=== PATIENT | female | born 1950 | race Caucasian/White ===

== ENCOUNTER → 2018-09-29 | Outpatient (CLI) | payer MEDICARE ==
--- NOTE | 2018-09-29 15:14 | CT ---
EXAMINATION TYPE: CT ankle RT wo con DATE OF EXAM: 09/29/2018 COMPARISON: None HISTORY: rt ankle fracture CT DLP: 263.0 mGycm Automated exposure control for dose reduction was used. TECHNIQUE: Contiguous axial CT slices were obtained of the right ankle without contrast. 3-D reformat s of the osseous structures were obtained for review at a separate workstation. FINDINGS: Lateral fixation plate and cortical screws traverse the healed fibular fracture. There are 7 cortical screws and the lateral fixation plate appropriately abuts the lateral cortical surface. No hardware fracture. Surgical fixation of medial malleolus and lateral malleolus fractures are also seen with the primary fracture line is slightly visualized. There is diffuse osseous demineralization, somewhat limiting ev aluation. Patchy areas of sclerosis are favored to relate to remaining normal trabeculated bone with lucent areas representing osseous demineralization. Overlying casting material is seen. There is exte nsive right lower extremity muscular atrophy and overlying generalized moderate subcutaneous edema li miting evaluation. Healed fracture deformity of the base of the fifth metatarsal is seen. Evaluation for further fractures is limited given the diffuse osseous demineralization. Patchy bone marrow seen throughout the talus although joint space remains aligned. Healed posterior malleolar fracture is inc identally seen. IMPRESSION: SEVERE RIGHT LOWER EXTREMITY MUSCULAR ATROPHY, EXTENSIVE OSSEOUS DEMINERALIZATION (LIMITING THE EVALU ATION) AND SURGICALLY FIXATED FRACTURE DEFORMITIES OF THE MEDIAL AND LATERAL MALLEOLUS DESCRIBED A ARTUR. HEALED POSTERIOR MALLEOLAR FRACTURE AND BASE OF THE FIFTH METATARSAL FRACTURE ARE ALSO NOTED.
== END | disposition home or self-care (01) ==
LOC: RADCTMAIN 14:15
PROVIDERS: ATTEND Podiatrist Foot & Ankle Surgery
DX: M62.561 Muscle wasting and atrophy, not elsewhere classified, right lower leg (principal); Z87.81 Personal history of (healed) traumatic fracture; Z98.890 Other specified postprocedural states

== ENCOUNTER → 2018-12-14 | Outpatient (CLI) | payer MEDICARE ==
--- NOTE | 2018-12-14 16:21 | US ---
EXAMINATION TYPE: US venous doppler duplex LE DATE OF EXAM: 12/14/2018 12:37 PM COMPARISON: NONE CLINICAL HISTORY: 68-year-old female M81.0 Known osteoporosis I73.9 Peripheral.... No pain. No blood thinners. No hx of blood clots. Broke right ankle in July 2018- patient states she has been sit ting a lot SIDE PERFORMED: Bilateral TECHNIQUE: The lower extremity deep venous system is examined utilizing real time linear array sonog aneudy with graded compression, doppler sonography and color-flow sonography. FINDINGS: VESSELS IMAGED: External Iliac Vein (EIV) Common Femoral Vein Deep Femoral Vein Greater Saphenous Vein * Femoral Vein Popliteal Vein Small Saphenous Vein * Proximal Calf Veins (* superficial vessels) Right Leg: Negative for DVT Left Leg: Negative for DVT IMPRESSION: No evidence for DVT within the bilateral lower extremities imaged from the groin to the upper calves.
--- NOTE | 2018-12-14 18:37 | BD ---
EXAMINATION TYPE: Axial Bone Density DATE OF EXAM: 12/14/2018 COMPARISON: NONE CLINICAL HISTORY: 68-year-old female known osteoporosis Height: 61.1 IN Weight: 138 LBS FRAX RISK QUESTIONS: History of Fracture in Adulthood: YES RT FOOT JUL 2018 RISK FACTORS HISTORY OF: Hip Fracture (Left): YES When: AGE 39 Active: LIMITED Diet low in dairy products/other sources of calcium: YES Postmenopausal woman: AGE 44 MEDICATIONS: Thyroid Medications: YES Which medication: Synthroid How Lon+ YEARS Additional Medications: SYNTHROID, VIT D, VIT B12, BLOOD PRESSURE, AMLODIPINE, EFFEXOR, EXAM MEASUREMENTS: Bone mineral densitometry was performed using the [employer]. Bone mineral density as measured about the Lumbar spine is: ----- L1-L4(G/cm2): 1.036 T Score Values are as follows: ----- L2: -2.1 ----- L3: -0.6 ----- L4: -1.3 ----- L1-L4: -1.2 Bone mineral density BASELINE Bone mineral density about the R hip (g/cm2): 0.633 T Score values are as follows: -----R Neck: -2.9 -----R Total: -2.9 Bone mineral density BASELINE IMPRESSION: Osteoporosis (T Score less than -2.5). There is increased fracture risk and therapy is usually indicated based on age. Re-Screen 1-2 years. NOTE: T-SCORE=SD OF THE YOUNG ADULT MEAN.
--- NOTE | 2018-12-16 09:39 | MM ---
Reason for exam: screening (asymptomatic). Last mammogram was performed 1 year and 5 months ago. History: Patient is postmenopausal. Family history of breast cancer in cousin and breast cancer in sister at age 69. Took estrogen for 5 months. Took progesterone for 5 months. Physical Findings: A clinical breast exam by your physician is recommended on an annual basis and results should be correlated with mammographic findings. MG 3D Screening Mammo W/Cad Bilateral CC and MLO view(s) were taken. Prior study comparison: July 20, 2017, mammogram, performed at [facility] [place]. June 19, 2016, mammogram, performed at [facility] [place]. The breast tissue is heterogeneously dense. This may lower the sensitivity of mammography. No significant changes when compared with prior studies. ASSESSMENT: Benign, BI-RAD 2 RECOMMENDATION: Routine screening mammogram of both breasts in 1 year.
== END | disposition home or self-care (01) ==
LOC: RADUSWWP 11:46
PROVIDERS: ATTEND Internal Medicine
DX: Z12.31 Encounter for screening mammogram for malignant neoplasm of breast (principal); M81.0 Age-related osteoporosis without current pathological fracture; R60.0 Localized edema
CPT/HCPCS: 77063; 77067; 77080; 93970

== ENCOUNTER → 2020-08-22 | Outpatient (CLI) | payer MEDICARE ==
--- NOTE | 2020-08-23 10:47 | MM ---
Reason for exam: screening (asymptomatic). Last mammogram was performed 1 year and 8 months ago. History: Patient is postmenopausal. Family history of breast cancer in cousin and breast cancer in sister at age 69. Took estrogen for 5 months. Took progesterone for 5 months. Physical Findings: A clinical breast exam by your physician is recommended on an annual basis and results should be correlated with mammographic findings. MG 3D Screening Mammo W/Cad Bilateral CC and MLO view(s) were taken. XCCL view(s) were taken of the left breast. Prior study comparison: December 14, 2018, bilateral MG 3d screening mammo w/cad. [place], [place] [facility] [place] The breast tissue is heterogeneously dense. This may lower the sensitivity of mammography. There are benign appearing round calcifications in the right breast. There is no discrete abnormality. Vessel right breast. ASSESSMENT: Benign, BI-RAD 2 RECOMMENDATION: Routine screening mammogram of both breasts in 1 year.
== END | disposition home or self-care (01) ==
LOC: RADMAMWWP 13:26
PROVIDERS: ATTEND Internal Medicine
DX: Z12.31 Encounter for screening mammogram for malignant neoplasm of breast (principal)
CPT/HCPCS: 77063; 77067

== ENCOUNTER 2020-10-23 18:15 | Inpatient (IN) | payer MEDICARE ==
[2020-10-23] MEDS ORDERED: ASPIRIN 81 MG PO STA (18:45)
[2020-10-23] MEDS ORDERED: NITROGLYCERIN SL TABS 0.4 MG TAB SUBLINGUAL STA ×3 (18:45)
--- NOTE | 2020-10-23 18:47 | ED ---
General Adult HPI - General Chief complaint: Chest Pain Stated complaint: chest pain Time Seen by Provider: 10/23/20 18:27 Source: patient, RN notes reviewed Mode of arrival: ambulatory Limitations: no limitations - History of Present Illness Initial comments: Patient is a pleasant 70-year-old female presenting to the emergency Department with complaints of chest discomfort. Onset of symptoms was 2 or 3 days ago. Discomfort is left chest. Discomfort is difficult to describe. Discomfort is mild at this time. Discomfort does increase with deep breaths. No dyspnea. No cough. No history of similar symptoms previously. No fevers. No leg pain or leg swelling. - Related Data Home Medications Medication Instructions Recorded Confirmed Benazepril HCl 40 mg PO HS 10/23/20 10/23/20 FLUoxetine HCL [PROzac] 20 mg PO DAILY 10/23/20 10/23/20 Levothyroxine Sodium [Synthroid] 150 mcg PO DAILY 10/23/20 10/23/20 Omeprazole 20 mg PO DAILY PRN 10/23/20 10/23/20 amLODIPine [Norvasc] 10 mg PO HS 10/23/20 10/23/20 Allergies Allergy/AdvReac Type Severity Reaction Status Date / Time gatifloxacin [From Tequin] Allergy Unknown Verified 10/23/20 20:43 Review of Systems ROS Statement: Those systems with pertinent positive or pertinent negative responses have been documented in the HPI. ROS Other: All systems not noted in ROS Statement are negative. Constitutional: Denies: fever Eyes: Denies: eye pain ENT: Denies: ear pain Respiratory: Denies: cough, dyspnea Cardiovascular: Reports: as per HPI, chest pain Endocrine: Denies: fatigue Gastrointestinal: Denies: abdominal pain Genitourinary: Denies: dysuria Musculoskeletal: Denies: back pain Skin: Denies: rash Neurological: Denies: weakness Past Medical History Past Medical History: Hypertension History of Any Multi-Drug Resistant Organisms: None Reported Past Surgical History: No Surgical Hx Reported Past Psychological History: No Psychological Hx Reported Smoking Status: Never smoker Past Alcohol Use History: Daily Past Drug Use History: None Reported General Exam Limitations: no limitations General appearance: alert, in no apparent distress Head exam: Present: normocephalic Eye exam: Present: normal appearance Neck exam: Present: normal inspection Respiratory exam: Present: normal lung sounds bilaterally. Absent: chest wall tenderness Cardiovascular Exam: Present: regular rate, normal rhythm Expanded Peripheral pulses: 2+: Radial (R), Radial (L), Dorsalis Pedis (R), Dorsalis Pedis (L) GI/Abdominal exam: Present: soft. Absent: tenderness Extremities exam: Present: normal inspection, other (Bilateral leg braces) Neurological exam: Present: alert Psychiatric exam: Present: normal affect, normal mood Skin exam: Present: normal color Course Vital Signs 10/23/20 10/23/20 18:22 20:40 Temperature 98.3 F Pulse Rate 100 84 Respiratory 18 16 Rate Blood Pressure 165/71 159/77 O2 Sat by Pulse 92 L 97 Oximetry EKG Findings - EKG Comments: EKG Findings:: Sinus rhythm at 96. AR 144. QRS 92. QT 356. QTc 449. Normal axis. Normal QRS. No acute ST change. PVC present. Medical Decision Making - Medical Decision Making Patient reevaluated and resting comfortably in bed. Patient does feel somewhat better following intervention. Patient and family updated on results and plan. Case was discussed in detail with Dr. taylor, who will admit covering for hospital call. - Lab Data Result diagrams: 10/23/20 18:57 10/23/20 18:57 Lab Results 10/23/20 10/23/20 10/23/20 Range/Units 18:57 18:57 18:57 WBC 7.7 (3.8-10.6) k/uL RBC 5.22 (3.80-5.40) m/uL Hgb 15.7 (11.4-16.0) gm/dL Hct 48.7 H (34.0-46.0) % MCV 93.2 (80.0-100.0) fL MCH 30.1 (25.0-35.0) pg MCHC 32.3 (31.0-37.0) g/dL RDW 13.4 (11.5-15.5) % Plt Count 268 (150-450) k/uL MPV 6.4 Neutrophils % 68 % Lymphocytes % 22 % Monocytes % 4 % Eosinophils % 4 % Basophils % 0 % Neutrophils # 5.2 (1.3-7.7) k/uL Lymphocytes # 1.7 (1.0-4.8) k/uL Monocytes # 0.3 (0-1.0) k/uL Eosinophils # 0.3 (0-0.7) k/uL Basophils # 0.0 (0-0.2) k/uL PT 9.8 (9.0-12.0) sec INR 0.9 (<1.2) APTT 22.9 (22.0-30.0) sec D-Dimer 1.03 H (<0.60) mg/L FEU Sodium 139 (137-145) mmol/L Potassium 4.5 (3.5-5.1) mmol/L Chloride 104 (98-107) mmol/L Carbon Dioxide 25 (22-30) mmol/L Anion Gap 10 mmol/L BUN 16 (7-17) mg/dL Creatinine 0.47 L (0.52-1.04) mg/dL Est GFR (CKD-EPI)AfAm >90 (>60 ml/min/1.73 sqM) Est GFR (CKD-EPI)NonAf >90 (>60 ml/min/1.73 sqM) Glucose 107 H (74-99) mg/dL Calcium 10.1 (8.4-10.2) mg/dL Magnesium 1.9 (1.6-2.3) mg/dL Total Bilirubin 0.9 (0.2-1.3) mg/dL AST 26 (14-36) U/L ALT 18 (4-34) U/L Alkaline Phosphatase 69 (38-126) U/L Creatine Kinase 162 H (30-135) U/L Troponin I (0.000-0.034) ng/mL Total Protein 8.4 H (6.3-8.2) g/dL Albumin 4.9 (3.5-5.0) g/dL 10/23/20 Range/Units 18:57 WBC (3.8-10.6) k/uL RBC (3.80-5.40) m/uL Hgb (11.4-16.0) gm/dL Hct (34.0-46.0) % MCV (80.0-100.0) fL MCH (25.0-35.0) pg MCHC (31.0-37.0) g/dL RDW (11.5-15.5) % Plt Count (150-450) k/uL MPV Neutrophils % % Lymphocytes % % Monocytes % % Eosinophils % % Basophils % % Neutrophils # (1.3-7.7) k/uL Lymphocytes # (1.0-4.8) k/uL Monocytes # (0-1.0) k/uL Eosinophils # (0-0.7) k/uL Basophils # (0-0.2) k/uL PT (9.0-12.0) sec INR (<1.2) APTT (22.0-30.0) sec D-Dimer (<0.60) mg/L FEU Sodium (137-145) mmol/L Potassium (3.5-5.1) mmol/L Chloride (98-107) mmol/L Carbon Dioxide (22-30) mmol/L Anion Gap mmol/L BUN (7-17) mg/dL Creatinine (0.52-1.04) mg/dL Est GFR (CKD-EPI)AfAm (>60 ml/min/1.73 sqM) Est GFR (CKD-EPI)NonAf (>60 ml/min/1.73 sqM) Glucose (74-99) mg/dL Calcium (8.4-10.2) mg/dL Magnesium (1.6-2.3) mg/dL Total Bilirubin (0.2-1.3) mg/dL AST (14-36) U/L ALT (4-34) U/L Alkaline Phosphatase (38-126) U/L Creatine Kinase (30-135) U/L Troponin I <0.012 (0.000-0.034) ng/mL Total Protein (6.3-8.2) g/dL Albumin (3.5-5.0) g/dL - Radiology Data Radiology results: report reviewed (CT angios chest shows no pulmonary embolism. Limitations of study. Atherosclerotic disease.), image reviewed (Chest x-ray shows prominence of the superior mediastinum.) Disposition Clinical Impression: Chest pain Disposition: ADMITTED IP TO THIS HOSP Is patient prescribed a controlled substance at d/c from ED?: No Referrals: Marco Antonio Madden MD [Primary Care Provider] - 1-2 days Decision Time: 21:07
[2020-10-23 19:13] LABS: Basophils % (A) 0 %; Eosinophils # (A) 0.3 k/uL (0-0.7); Eosinophils % (A) 4 %; HCT 48.7 % (34.0-46.0); HGB 15.7 gm/dL (11.4-16.0); Lymphocytes # (A) 1.7 k/uL (1.0-4.8); Lymphocytes % (A) 22 %; MCH 30.1 pg (25.0-35.0); MCHC 32.3 g/dL (31.0-37.0); MCV 93.2 fL (80.0-100.0); Mean Platelet Volume 6.4; Monocytes # (A) 0.3 k/uL (0-1.0); Monocytes % (A) 4 %; Neutrophils # (A) 5.2 k/uL (1.3-7.7); Neutrophils % (A) 68 %; Platelet Count 268 k/uL (150-450); RBC 5.22 m/uL (3.80-5.40); RDW 13.4 % (11.5-15.5); WBC 7.7 k/uL (3.8-10.6)
--- NOTE | 2020-10-23 19:20 | XR ---
EXAMINATION TYPE: XR chest 2V DATE OF EXAM: 10/23/2020 COMPARISON: NONE HISTORY: Chest pain. TECHNIQUE: Frontal and lateral views of the chest are obtained. FINDINGS: There is mild left basilar hazy opacity. No significant pleural effusion, or pneumothorax seen. There is prominence of the superior mediastinum. The cardiac silhouette size is within normal limits. The osseous structures are intact. IMPRESSION: Prominence of the superior mediastinal, may relate to thyroid pathology. However other etiologies not excluded. Recommend clinical correlation and further evaluation with CT as indicated. Mild left basilar opacity, probably atelectasis.
[2020-10-23 19:31] LABS: Chloride 104 mmol/L (98-107); INR 0.9 (<1.2); Partial Thromboplastin Time 22.9 sec (22.0-30.0); Prothrombin Time 9.8 sec (9.0-12.0)
[2020-10-23 19:33] LABS: ALT 18 U/L (4-34); AST 26 U/L (14-36); African American GFR (CKD) >90 (>60 ml/min/1.73 sqM); Albumin 4.9 g/dL (3.5-5.0); Alkaline Phosphatase 69 U/L (38-126); Anion Gap 10 mmol/L; Blood Urea Nitrogen 16 mg/dL (7-17); Calcium 10.1 mg/dL (8.4-10.2); Carbon Dioxide 25 mmol/L (22-30); Creatine Kinase 162 U/L (30-135); Glucose 107 mg/dL (74-99); Magnesium 1.9 mg/dL (1.6-2.3); Non-African American GFR(CKD) >90 (>60 ml/min/1.73 sqM); Potassium 4.5 mmol/L (3.5-5.1); Sodium 139 mmol/L (137-145); Total Bilirubin 0.9 mg/dL (0.2-1.3); Total Protein 8.4 g/dL (6.3-8.2)
[2020-10-23 19:38] LABS: D-Dimer 1.03 mg/L FEU (<0.60)
--- NOTE | 2020-10-23 20:53 | CT ---
EXAMINATION TYPE: CT angio chest DATE OF EXAM: 10/23/2020 8:31 PM COMPARISON: Same-day radiograph. HISTORY: Dyspnea. Elevated d-dimer CT DLP: 243.3 mGycm Automated exposure control for dose reduction was used. CONTRAST: CTA scan of the thorax is performed with IV Contrast, patient injected with 70 mL of Isovue 370, pulm onary embolism protocol. MIP images are created and reviewed. FINDINGS: LUNGS: The lungs are grossly clear, there is no concerning parenchymal mass or nodule identified. T here is no pleural effusion or pneumothorax seen. The tracheobronchial tree is patent. MEDIASTINUM: There is suboptimal enhancement of the pulmonary artery and its branches. There is no CT evidence for pulmonary embolism of the main/central branches. There are no greater than 1 cm hilar or mediastinal lymph nodes. Azygos vein seen. Moderate thoracic aorta atherosclerotic disease with de scending aorta intramural thrombus noted. No pericardial effusion is seen. OTHER: No additional significant abnormality is seen. IMPRESSION: NO ACUTE PE WITHIN THE LIMITATIONS OF THE STUDY NO ACUTE CARDIOPULMONARY ABNORMALITY. RADIOGRAPHIC ABNORMALITY, CORRESPONDS TO THE AZYGOS VEIN AND ADJACENT TORTUOUS VASCULATURE. ATHEROSCLEROTIC DISEASE WITH DESCENDING AORTA INTRAMURAL THROMBUS.
[2020-10-23] MEDS ORDERED: NITROGLYCERIN SL TABS 0.4 MG TAB SUBLINGUAL PRN (21:07)
[2020-10-23] MEDS: lisinopriL 20 MG TAB PO SCH (23:46)
[2020-10-23] MEDS: amLODIPine 10 MG TAB PO SCH (23:47)
[2020-10-24 02:33] LABS: Cholesterol 254 mg/dL (<200); HDL Cholesterol 75 mg/dL (40-60); LDL Cholesterol,Calculated 152 mg/dL (0-99); Triglycerides 137 mg/dL (<150)
[2020-10-24] MEDS: NITROGLYCERIN OINT 1 INCH/GM PACKET TOPICAL SCH ×4 (04:16→21:14)
[2020-10-24] MEDS: LEVOTHYROXINE 100 MCG TAB PO SCH (06:53)
[2020-10-24] MEDS: ASPIRIN 325 MG TAB PO SCH (07:54)
[2020-10-24] MEDS: FLUoxetine HCL 20 MG CAP PO SCH (07:54)
--- NOTE | 2020-10-24 08:54 | P.CRDCN ---
History of Present Illness Consult date: 10/24/20 Chief complaint: Chest pain History of present illness: This is a very pleasant 70-year-old female patient with a past medical history significant for hypertension with no established history of coronary artery disease presented to the emergency room complaining of chest discomfort. The patient describes chest discomfort with typical and atypical features. The symptoms started about a week ago. Initially she was experiencing what it seems to be positional chest discomfort mainly when she lay on her left side. The discomfort as a sharp and only in the chest without any radiation. No associated symptoms. Yesterday she was doing some shopping and she started experiencing discomfort when she was walking when she arrived her current sat in her car the discomfort resolved completely. Because of that she decided to come to the emergency department the cardiac enzymes were checked and came in to be unremarkable. The EKG showed sinus rhythm without any ischemic ST or T-wave abnormalities and with PACs only. She underwent a d-dimer and that came in to be abnormal and subsequently a CT of the chest was performed and BE was ruled out but the CT reported "thrombus in the descending thoracic aorta". We are going to review the CT with the radiologist later on today. No aneurysm or dissection reported on the computed tomography scan. The patient does have a family history of aortic aneurysm and according to her her dad had it. She stated that she underwent a stress test in July 2020 by her primary care physician and we are in process of getting a copy of the test. Past Medical History Past Medical History: Hypertension History of Any Multi-Drug Resistant Organisms: None Reported Past Surgical History: No Surgical Hx Reported Past Psychological History: No Psychological Hx Reported Smoking Status: Never smoker Past Alcohol Use History: Daily Past Drug Use History: None Reported Medications and Allergies Home Medications Medication Instructions Recorded Confirmed Type Benazepril HCl 40 mg PO HS 10/23/20 10/23/20 History FLUoxetine HCL [PROzac] 20 mg PO DAILY 10/23/20 10/23/20 History Levothyroxine Sodium [Synthroid] 150 mcg PO DAILY 10/23/20 10/23/20 History Omeprazole 20 mg PO DAILY PRN 10/23/20 10/23/20 History amLODIPine [Norvasc] 10 mg PO HS 10/23/20 10/23/20 History Allergies Allergy/AdvReac Type Severity Reaction Status Date / Time gatifloxacin [From Tequin] Allergy Unknown Verified 10/23/20 20:43 Physical Exam Vitals: Vital Signs Temp Pulse Pulse Resp BP Pulse Ox 10/24/20 07:46 70 10/24/20 07:39 98 F 72 18 131/68 96 10/24/20 05:37 98 F 71 18 140/74 95 10/23/20 22:00 94 16 136/91 97 10/23/20 20:40 84 16 159/77 97 10/23/20 18:22 98.3 F 100 18 165/71 92 L Intake and Output 10/23/20 10/24/20 10/24/20 22:59 06:59 14:59 Other: Weight 67.132 kg - Constitutional General appearance: no acute distress - Respiratory Respiratory: bilateral: CTA - Cardiovascular Rhythm: regular Heart sounds: normal: S1, S2 Results 10/23/20 18:57 10/23/20 18:57 Cardiac Enzymes 10/23/20 10/23/20 10/23/20 Range/Units 18:57 18:57 22:30 AST 26 (14-36) U/L Troponin I <0.012 <0.012 (0.000-0.034) ng/mL 10/24/20 Range/Units 00:26 AST (14-36) U/L Troponin I <0.012 (0.000-0.034) ng/mL Coagulation 10/23/20 Range/Units 18:57 PT 9.8 (9.0-12.0) sec APTT 22.9 (22.0-30.0) sec Lipids 10/24/20 Range/Units 00:26 Triglycerides 137 (<150) mg/dL Cholesterol 254 H (<200) mg/dL HDL Cholesterol 75 H (40-60) mg/dL CBC 10/23/20 Range/Units 18:57 WBC 7.7 (3.8-10.6) k/uL RBC 5.22 (3.80-5.40) m/uL Hgb 15.7 (11.4-16.0) gm/dL Hct 48.7 H (34.0-46.0) % Plt Count 268 (150-450) k/uL Comprehensive Metabolic Panel 10/23/20 Range/Units 18:57 Sodium 139 (137-145) mmol/L Potassium 4.5 (3.5-5.1) mmol/L Chloride 104 (98-107) mmol/L Carbon Dioxide 25 (22-30) mmol/L BUN 16 (7-17) mg/dL Creatinine 0.47 L (0.52-1.04) mg/dL Glucose 107 H (74-99) mg/dL Calcium 10.1 (8.4-10.2) mg/dL AST 26 (14-36) U/L ALT 18 (4-34) U/L Alkaline Phosphatase 69 (38-126) U/L Total Protein 8.4 H (6.3-8.2) g/dL Albumin 4.9 (3.5-5.0) g/dL Current Medications Generic Name Dose Route Start Last Admin Trade Name Freq PRN Reason Stop Dose Admin Amlodipine Besylate 10 mg 10/23/20 23:45 10/23/20 23:47 Amlodipine 10 Mg Tab PO 10 mg HS SHELBY Administration Aspirin 325 mg 10/24/20 09:00 10/24/20 07:54 Aspirin 325 Mg Tab PO 325 mg DAILY SHELBY Administration Fluoxetine HCl 20 mg 10/24/20 09:00 10/24/20 07:54 Fluoxetine Hcl 20 Mg Cap PO 20 mg DAILY SHELBY Administration Levothyroxine Sodium 150 mcg 10/24/20 06:30 10/24/20 06:53 Levothyroxine 100 Mcg Tab PO 150 mcg DAILY@0630 SHELBY Administration Lisinopril 40 mg 10/23/20 23:45 10/23/20 23:46 Lisinopril 20 Mg Tab PO 40 mg HS SHELBY Administration Nitroglycerin 0.4 mg 10/23/20 21:07 Nitroglycerin Sl Tabs 0.4 Mg Tab SUBLINGUAL Q5M PRN Chest Pain Nitroglycerin 0.5 inch 10/24/20 00:00 10/24/20 06:54 Nitroglycerin Oint 1 Inch/Gm Packet TOPICAL 0.5 inch Q6HR SHELBY Administration Intake and Output 10/23/20 10/24/20 10/24/20 22:59 06:59 14:59 Other: Weight 67.132 kg 10/23/20 18:57 10/23/20 18:57 Assessment and Plan Assessment: Assessment #1 chest discomfort with typical and atypical features #2 hypertension #3 possible thrombus in the descending thoracic aorta Plan #1 acute coronary event was ruled out #2 PE was ruled out #3 aortic syndrome to be ruled out. We'll review the computed tomography scan with the radiologist later on today #4 obtain a copy of the last stress test from July 2020 #4 obtain an echocardiogram was Doppler
--- NOTE | 2020-10-24 11:23 | P.HPIM ---
History of Present Illness This is a pleasant 70 years old female with past medical history of hypertension. Presents to emergency room because of chest pain. History of muscular dystrophy using leg braces on both sides Patient states she has been having chest pain for the last 4 days, it was on and off for the first 2 days however started getting worse over the last couple days. She states that her left side was hurting in her chest, pain is nonradiating. Pain was 89/10 in severity currently she is chest pain-free, she states that the patient is to keep away. The patient felt like sharp increase by deep breathing and lying on the left side and increased with movement and coughing. sHe had some dyspnea but now is everything has resolved. No coughing currently. She denies smoking currently, she is to but quit long time ago. She drinks wine 1-2 cups about 5 days a week, no illicit drugs She is hemodynamically stable. Labs including CBC, BMP, liver enzymes were unremarkable. D-dimer is slightly elevated at 1.03. Serial troponin are neg ative 3 with less than 0.012. CTA of the chest: No pulmonary embolism. 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 HEENT: No recent visual problems or hearing problems. Denied any sore throat. CARDIOVASCULAR: No orthopnea, PND, no palpitations, no syncope. PULMONARY: No shortness of breath, no cough, no hemoptysis. GASTROINTESTINAL: No diarrhea, no nausea, no vomiting, no abdominal pain. Normoactive bowel sounds. NEUROLOGICAL: No headaches, no weakness, no numbness. HEMATOLOGICAL: Denies any bleeding or petechiae. GENITOURINARY: Denies any burning micturition, frequency, or urgency. MUSCULOSKELETAL/RHEUMATOLOGICAL: Denies any joint pain, swelling, or any muscle pain. ENDOCRINE: Denies any polyuria or polydipsia. Past Medical History Past Medical History: Hypertension History of Any Multi-Drug Resistant Organisms: None Reported Past Surgical History: No Surgical Hx Reported Past Psychological History: No Psychological Hx Reported Smoking Status: Never smoker Past Alcohol Use History: Daily Past Drug Use History: None Reported Medications and Allergies Home Medications Medication Instructions Recorded Confirmed Type Benazepril HCl 40 mg PO HS 10/23/20 10/23/20 History FLUoxetine HCL [PROzac] 20 mg PO DAILY 10/23/20 10/23/20 History Levothyroxine Sodium [Synthroid] 150 mcg PO DAILY 10/23/20 10/23/20 History Omeprazole 20 mg PO DAILY PRN 10/23/20 10/23/20 History amLODIPine [Norvasc] 10 mg PO HS 10/23/20 10/23/20 History Allergies Allergy/AdvReac Type Severity Reaction Status Date / Time gatifloxacin [From Tequin] Allergy Unknown Verified 10/23/20 20:43 Physical Exam Vitals: Vital Signs Temp Pulse Pulse Resp BP Pulse Ox 10/24/20 07:46 70 10/24/20 07:39 98 F 72 18 131/68 96 10/24/20 05:37 98 F 71 18 140/74 95 10/23/20 22:00 94 16 136/91 97 10/23/20 20:40 84 16 159/77 97 10/23/20 18:22 98.3 F 100 18 165/71 92 L Intake and Output 10/23/20 10/24/20 10/24/20 22:59 06:59 14:59 Other: Weight 67.132 kg GENERAL: The patient is alert and oriented x3, not in any acute distress. Well developed, well nourished. HEENT: Pupils are round and equally reacting to light. EOMI. No scleral icterus. No conjunctival pallor. Normocephalic, atraumatic. No pharyngeal erythema. No thyromegaly. CARDIOVASCULAR: S1 and S2 present. No murmurs, rubs, or gallops. PULMONARY: Chest is clear to auscultation, no wheezing or crackles. ABDOMEN: Soft, nontender, nondistended, normoactive bowel sounds. No palpable organomegaly. MUSCULOSKELETAL: No joint swelling or deformity. EXTREMITIES: No cyanosis, clubbing, or pedal edema. NEUROLOGICAL: Gross neurological examination did not reveal any focal deficits. SKIN: No rashes. No petechiae Results CBC & Chem 7: 10/23/20 18:57 10/23/20 18:57 Labs: Abnormal Lab Results - Last 24 Hours (Table) 10/23/20 10/23/20 10/23/20 Range/Units 18:57 18:57 18:57 Hct 48.7 H (34.0-46.0) % D-Dimer 1.03 H (<0.60) mg/L FEU Creatinine 0.47 L (0.52-1.04) mg/dL Glucose 107 H (74-99) mg/dL Creatine Kinase 162 H (30-135) U/L Total Protein 8.4 H (6.3-8.2) g/dL Cholesterol (<200) mg/dL LDL Cholesterol, Calc (0-99) mg/dL HDL Cholesterol (40-60) mg/dL 10/24/20 Range/Units 00:26 Hct (34.0-46.0) % D-Dimer (<0.60) mg/L FEU Creatinine (0.52-1.04) mg/dL Glucose (74-99) mg/dL Creatine Kinase (30-135) U/L Total Protein (6.3-8.2) g/dL Cholesterol 254 H (<200) mg/dL LDL Cholesterol, Calc 152 H (0-99) mg/dL HDL Cholesterol 75 H (40-60) mg/dL Assessment and Plan Assessment: Chest pain, rule out cardiac causes Hypertension Possible descending aorta intramural thrombus History of muscular dystrophy Plan: This is a pleasant 70 years old female who presents because of Chest pain. We'll do serial troponins, cardiology consult. Continue with aspirin. I discussed the case with coastal/harbor defense officer team, they reviewed recent stress test which was unremarkable and there is no concern for CAD. Also discussed with them the abnormal finding of the CTA of the chest for possible descending intra- abdominal aortic thrombus, it looks very unusual in absence of aortic aneurysm and coastal/harbor defense officer team and Dr. Chavarria they going to discuss it with coastal/harbor defense officer and will inform us with the plan. Labs and medication were reviewed.. Continue same treatment. Continue with symptomatic treatment. Resume home medication. Monitor lytes and vitals. DVT and GI prophylaxis. Further recommendations depends on the clinical course of the patient DVT prophylaxis: Subcutaneous heparin GI Prophylaxis: Pepcid
--- NOTE | 2020-10-24 16:57 | ECHOF ---
Referral Reason:CP MEASUREMENTS -------- HEIGHT: 157.5 cm WEIGHT: 67.1 kg BP: RVIDd: 2.6 cm (< 3.3) IVSd: 1.4 cm (0.6 - 1.1) LVIDd: 1.8 cm (3.9 - 5.3) LVPWd: 1.5 cm (0.6 - 1.1) IVSs: 1.9 cm LVIDs: 1.3 cm LVPWs: 1.4 cm LAESV Index (A-L): 13.52 ml/m Ao Diam: 2.8 cm (2.0 - 3.7) AV Cusp: 1.7 cm (1.5 - 2.6) LA Diam: 3.1 cm (2.7 - 3.8) MV EXCURSION: 18.048 mm (> 18.000) MV EF SLOPE: 118 mm/s (70 - 150) EPSS: 0.2 cm MV E Gato: 0.80 m/s MV DecT: 252 ms MV A Gato: 0.81 m/s MV E/A Ratio: 0.99 AR PHT: 389 ms RAP: 5.00 mmHg RVSP: 24.64 mmHg FINDINGS -------- This was a technically good study. The left ventricular size is normal. There is mild concentric left ventricular hypertrophy. Overa ll left ventricular systolic function is normal with, an EF between 55 - 60 %. The diastolic fillin g pattern is normal for the age of the patient 12.52. The right ventricle is normal in size. The left atrial size is normal. Normal LA size by volume 22+/-6 ml/m2. The right atrial size is normal. Aortic valve is trileaflet and is mildly thickened. Trace amount of aortic regurgitation. The mitral valve is normal. There is trace mitral regurgitation. The tricuspid valve appears structurally normal. Trace tricuspid regurgitation present. Right linda tricular systolic pressure is normal at < 35 mmHg. There is no pulmonic regurgitation present. The aortic root size is normal. Normal inferior vena cava with normal inspiratory collapse consistent with estimated right atrial pre ssure of 5 mmHg. There is no pericardial effusion. CONCLUSIONS -------- 1. The left ventricular size is normal. 2. There is mild concentric left ventricular hypertrophy. 3. Overall left ventricular systolic function is normal with, an EF between 55 - 60 %. 4. The diastolic filling pattern is normal for the age of the patient 12.52 5. Aortic valve is trileaflet and is mildly thickened. 6. Trace amount of aortic regurgitation. 7. There is trace mitral regurgitation. 8. Trace tricuspid regurgitation present. 9. There is no pericardial effusion. DIRECTOR GAME: Amina Barton RDCS
[2020-10-24] MEDS: lisinopriL 20 MG TAB PO SCH (21:14)
[2020-10-24] MEDS: amLODIPine 10 MG TAB PO SCH (21:14)
[2020-10-24] MEDS: HEPARIN SODIUM,PORCINE 5,000 UNIT/ML 1 ML VIAL SQ SCH (21:14)
[2020-10-24] MEDS: FAMOTIDINE 20 MG/2 ML VIAL IV SCH (21:14)
--- NOTE | 2020-10-24 21:29 | US ---
EXAMINATION TYPE: US venous doppler duplex LE DATE OF EXAM: 10/24/2020 9:00 PM COMPARISON: US 12/14/2018. CLINICAL HISTORY: Rule out DVT. Rule out DVT. No hx of DVT. Patient does not take blood thinners. Pat ient has chest pain. SIDE PERFORMED: Bilateral TECHNIQUE: The lower extremity deep venous system is examined utilizing real time linear array sonog aneudy with graded compression, doppler sonography and color-flow sonography. VESSELS IMAGED: Common Femoral Vein Deep Femoral Vein Greater Saphenous Vein * Femoral Vein Popliteal Vein Small Saphenous Vein * Proximal Calf Veins (* superficial vessels) Right Leg: No evidence of DVT in veins imaged at this time from prox calf veins to CFV/GSV. Left Leg: No evidence of DVT in veins imaged at this time from prox calf veins to CFV/GSV. IMPRESSION: No evidence of DVT in the bilateral lower extremities.
[2020-10-25] MEDS: NITROGLYCERIN OINT 1 INCH/GM PACKET TOPICAL SCH ×2 (00:36→06:31)
[2020-10-25] MEDS: LEVOTHYROXINE 100 MCG TAB PO SCH (06:32)
[2020-10-25] MEDS ORDERED: SODIUM CHLORIDE 0.9% 1,000 ML in EMPTY BAG 1 BAG IV ONE (08:14)
[2020-10-25] MEDS ORDERED: ATORVASTATIN 80 MG TAB PO STA (08:14)
[2020-10-25] MEDS: HEPARIN SODIUM,PORCINE 5,000 UNIT/ML 1 ML VIAL SQ SCH ×2 (08:41→22:17)
[2020-10-25] MEDS: FAMOTIDINE 20 MG/2 ML VIAL IV SCH ×2 (08:42→22:17)
[2020-10-25] MEDS: ASPIRIN 325 MG TAB PO SCH (08:42)
[2020-10-25] MEDS: FLUoxetine HCL 20 MG CAP PO SCH (08:45)
--- NOTE | 2020-10-25 08:57 | P.PN ---
Subjective This is a pleasant 70 years old female with past medical history of hypertension. Presents to emergency room because of chest pain. History of mus cular dystrophy using leg braces on both sides Patient states she has been having chest pain for the last 4 days, it was on and off for the first 2 days however started getting worse over the last couple days. She states that her left side was hurting in her chest, pain is nonradiating. Pain was 89/10 in severity currently she is chest pain-free, she states that the patient is to keep away. The patient felt like sharp increase by deep breathing and lying on the left side and increased with movement and coughing. sHe had some dyspnea but now is everything has resolved. No coughing currently. She denies smoking currently, she is to but quit long time ago. She drinks wine 1-2 cups about 5 days a week, no illicit drugs She is hemodynamically stable. Labs including CBC, BMP, liver enzymes were unremarkable. D-dimer is slightly elevated at 1.03. Serial troponin are negative 3 with less than 0.012. CTA of the chest: No pulmonary embolism. 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 With evid ence of atherosclerotic plaque of the descending aorta there is high suspicion for coronary atherosclerotic disease. Cardiology team are planning for cardiac cath today. As per cardiology team the lesion seen on the descending aorta on CAT scan on admission is most likely atherosclerotic plaque rather than thrombosis. Venous ultrasound of the lower extremity: Negative for DVT. Continue with aspirin Objective - Vital Signs Vital signs: Vital Signs Temp 97.6 F 10/25/20 03:00 Pulse 80 10/25/20 03:00 Resp 18 10/25/20 03:00 BP 117/70 10/25/20 03:00 Pulse Ox 95 10/25/20 03:00 Intake & Output 10/24/20 10/25/20 10/25/20 18:59 06:59 18:59 Intake Total 240 Balance 240 Weight 67.132 kg Intake: Oral 240 Other: Voiding Method Toilet Toilet # Voids 1 - Exam GENERAL: The patient is alert and oriented x3, not in any acute distress. Well developed, well nourished. HEENT: Pupils are round and equally reacting to light. EOMI. No scleral icterus. No conjunctival pallor. Normocephalic, atraumatic. No pharyngeal erythema. No thyromegaly. CARDIOVASCULAR: S1 and S2 present. No murmurs, rubs, or gallops. PULMONARY: Chest is clear to auscultation, no wheezing or crackles. ABDOMEN: Soft, nontender, nondistended, normoactive bowel sounds. No palpable organomegaly. MUSCULOSKELETAL: No joint swelling or deformity. EXTREMITIES: No cyanosis, clubbing, or pedal edema. NEUROLOGICAL: Gross neurological examination did not reveal any focal deficits. SKIN: No rashes. no petechiae. - Labs CBC & Chem 7: 10/23/20 18:57 10/23/20 18:57 Assessment and Plan Assessment: Chest pain, rule out cardiac causes Hypertension Possible descending aorta intramural thrombus. On further review it is likely atherosclerotic plaque rather than thrombus History of muscular dystrophy Plan: This is a pleasant 70 years old female who presents because of Chest pain. cardiology consult recommended cardiac cath for the patient. Continue with aspirin. I discussed the case with retail wireless associate team, I discussed with them the abnormal finding of the CTA of the chest for possible descending intra-abdominal aortic thrombus, it looks like Dr. Chavarria has refused the CAT scan with the radiologist and most likely this is atherosclerotic plaque greater than thrombosis. And because of persistent chest pain and evidence of atherosclerotic disease, retail wireless associate team recommended cardiac cath, I talked to the patient and she agrees Labs and medication were reviewed.. Continue same treatment. Continue with symptomatic treatment. Resume home medication. Monitor lytes and vitals. DVT and GI prophylaxis. Further recommendations depends on the clinical course of the patient DVT prophylaxis: Subcutaneous heparin GI Prophylaxis: Pepcid
--- NOTE | 2020-10-25 10:01 | P.CRDCN ---
History of Present Illness History of present illness: HISTORY OF PRESENTING ILLNESS This is a pleasant 70-year-old female past medical history significant for hypertension and dyslipidemia. She is seen and examined sitting up in bed in no acute distress. She continues to have intermittent episodes of chest discomfort last night and was relieved by Nitropaste. She denies shortness of breath, dizziness or palpitations. CT of the thoracic aorta was reviewed with the radiologist and rather than thrombus it is thought to be a plaque in the descending thoracic aorta. Laboratory data reviewed, LDL 152 and HDL 75. Stress test reviewed from July 2020 was negative for reversible cardiac ischemia with ejection fraction 55%. PHYSICAL EXAMINATION CONSTITUTIONAL: No apparent distress. HEENT: Head is normocephalic. Pupils are equal, round. Sclerae anicteric. Mucous membranes of the mouth are moist. No JVD. No carotid bruit. CHEST EXAMINATION: Lungs are clear to auscultation. No chest wall tenderness is noted on palpation or with deep breathing. HEART EXAMINATION: Regular rate and rhythm. S1, S2 heard. No murmurs, gallops or rub. EXTREMITIES: 2+ peripheral pulses, no lower extremity edema and no calf tenderness. ASSESSMENT Chest discomfort Hypertension Daily alcohol intake Dyslipidemia PLAN Given her ongoing chest discomfort relieved by nitroglycerin with risk factors of hypertension and dyslipidemia we recommend proceeding with cardiac catheterization. I have discussed the risks, benefits and alternative therapies for the above-mentioned procedure and for both sedation/analgesia as well as necessary blood product administration, if indicated, as they pertain to this patient. The patient has indicated understanding and acceptance of the risks and procedures discussed. Questions have been answered appropriately and she is agreeable to move forward with the above-stated procedure. Further recommendations to follow based upon clinical course. Nurse Practitioner note has been reviewed, I agree with a documented findings and plan of care. Patient was seen and examined. 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 Hiatal Hernia History of Any Multi-Drug Resistant Organisms: None Reported Past Surgical History: No Surgical Hx Reported Past Anesthesia/Blood Transfusion Reactions: No Reported Reaction Smoking Status: Former smoker - Past Family History Father Additional Family Medical History / Comment(s): aneurysm. septicemia from bug bite and passed from renal failure Mother Family Medical History: Cancer Additional Family Medical History / Comment(s): colon cancer Medications and Allergies Home Medications Medication Instructions Recorded Confirmed Type Benazepril HCl 40 mg PO HS 10/23/20 10/23/20 History FLUoxetine HCL [PROzac] 20 mg PO DAILY 10/23/20 10/23/20 History Levothyroxine Sodium [Synthroid] 150 mcg PO DAILY 10/23/20 10/23/20 History Omeprazole 20 mg PO DAILY PRN 10/23/20 10/23/20 History amLODIPine [Norvasc] 10 mg PO HS 10/23/20 10/23/20 History Allergies Allergy/AdvReac Type Severity Reaction Status Date / Time gatifloxacin [From Tequin] Allergy Unknown Verified 10/23/20 20:43 Physical Exam Vitals: Vital Signs Temp Pulse Pulse Resp BP BP Pulse Ox 10/25/20 09:00 97.7 F 73 18 131/75 93 L 10/25/20 08:14 97.7 F 73 18 131/75 93 L 10/25/20 03:00 97.6 F 80 18 117/70 95 10/24/20 21:00 98.2 F 81 18 136/81 96 10/24/20 18:10 16 10/24/20 18:09 98.8 F 77 16 161/71 98 10/24/20 11:55 75 18 121/65 96 Intake and Output 10/24/20 10/25/20 10/25/20 22:59 06:59 14:59 Intake Total 240 Balance 240 Intake: Oral 240 Other: Voiding Method Toilet Toilet # Voids 1 1 Weight 67.132 kg Results 10/23/20 18:57 10/23/20 18:57 Current Medications Generic Name Dose Route Start Last Admin Trade Name Freq PRN Reason Stop Dose Admin Amlodipine Besylate 10 mg 10/23/20 23:45 10/24/20 21:14 Amlodipine 10 Mg Tab PO 10 mg HS SHELBY Administration Aspirin 325 mg 10/24/20 09:00 10/25/20 08:42 Aspirin 325 Mg Tab PO 325 mg DAILY SHELBY Administration Famotidine 20 mg 10/24/20 21:00 10/25/20 08:42 Famotidine 20 Mg/2 Ml Vial IV 20 mg Q12HR SHELBY Administration Fluoxetine HCl 20 mg 10/24/20 09:00 10/25/20 08:45 Fluoxetine Hcl 20 Mg Cap PO 20 mg DAILY SHELBY Administration Heparin Sodium (Porcine) 5,000 unit 10/24/20 21:00 10/25/20 08:41 Heparin Sodium,Porcine 5,000 Unit/Ml 1 Ml Vial SQ 5,000 unit Q12HR SHELBY Administration Sodium Chloride 1,000 ml/ IV 1,000 mls @ 67.132 mls/hr 10/25/20 08:14 10/25/20 08:42 Solution IV 10/25/20 23:07 67.132 mls/hr .[id number] ONE Administration 1 ML/KG/HR Heparin Sodium (Porcine) 10, 1,001 mls @ 999 mls/hr 10/26/20 07:00 000 unit/ Sodium Chloride IRRIGATION 10/26/20 23:00 ONCE PRN INTRA-OP Heparin Sodium (Porcine) 2,500 250.5 mls @ 250 mls/hr 10/26/20 07:00 unit/ Sodium Chloride IRRIGATION 10/26/20 23:00 ONCE PRN INTRA-OP Levothyroxine Sodium 150 mcg 10/24/20 06:30 10/25/20 06:32 Levothyroxine 100 Mcg Tab PO 150 mcg DAILY@0630 SHELBY Administration Lisinopril 40 mg 10/23/20 23:45 10/24/20 21:14 Lisinopril 20 Mg Tab PO 40 mg HS SHELBY Administration Nitroglycerin 0.4 mg 10/23/20 21:07 Nitroglycerin Sl Tabs 0.4 Mg Tab SUBLINGUAL Q5M PRN Chest Pain Nitroglycerin 0.5 inch 10/24/20 00:00 10/25/20 06:31 Nitroglycerin Oint 1 Inch/Gm Packet TOPICAL Not Given Q6HR SHELBY Intake and Output 10/24/20 10/25/20 10/25/20 22:59 06:59 14:59 Intake Total 240 Balance 240 Intake: Oral 240 Other: Voiding Method Toilet Toilet # Voids 1 1 Weight 67.132 kg 10/23/20 18:57 10/23/20 18:57
[2020-10-25] MEDS ORDERED: IV FLUID CONTINUATION 900 ML IV ONE (10:42)
[2020-10-25] MEDS ORDERED: LIDOCAINE 1% INJ 10MG/ML (20 ML MDV) ONE (10:54)
[2020-10-25] MEDS ORDERED: VERAPAMIL 2.5 MG/ML 2 ML AMP ONE (11:01)
[2020-10-25] MEDS ORDERED: MIDAZOLAM 2 MG/2 ML VIAL IV ONE (11:06)
[2020-10-25] MEDS: LIDOCAINE 1% INJ 10MG/ML (20 ML MDV) SQ ONE ×2 (11:10→11:14)
[2020-10-25] MEDS ORDERED: HEPARIN SODIUM 1,000 UN/ML (10ML VL) ONE (11:11)
[2020-10-25] MEDS ORDERED: fentaNYL (PF) 50 MCG/ML 2 ML AMP IV ONE (11:15)
[2020-10-25] MEDS ORDERED: fentaNYL (PF) 50 MCG/ML 2 ML AMP ONE (11:16)
[2020-10-25] MEDS ORDERED: IOPAMIDOL-370 125ML BTL INJ ONE (11:30)
[2020-10-25] MEDS: lisinopriL 20 MG TAB PO SCH (22:18)
[2020-10-25] MEDS: amLODIPine 10 MG TAB PO SCH (22:18)
[2020-10-26] MEDS: LEVOTHYROXINE 100 MCG TAB PO SCH (06:03)
[2020-10-26 06:06] VITALS: RESP 16
[2020-10-26] MEDS ORDERED: HEPARIN SODIUM,PORCINE 10,000 UNIT in SODIUM CHLORIDE 0.9% 1,000 ML IRRIGATION PRN (07:00)
[2020-10-26] MEDS ORDERED: HEPARIN SODIUM,PORCINE 2,500 UNIT in SODIUM CHLORIDE 0.9% 250 ML IRRIGATION PRN (07:00)
[2020-10-26 08:02] VITALS: BP 146/77; PULSE 69; TEMP 97.8
[2020-10-26] MEDS: FAMOTIDINE 20 MG/2 ML VIAL IV SCH (08:29)
[2020-10-26] MEDS: FLUoxetine HCL 20 MG CAP PO SCH (08:30)
[2020-10-26] MEDS: HEPARIN SODIUM,PORCINE 5,000 UNIT/ML 1 ML VIAL SQ SCH (08:30)
[2020-10-26] MEDS ORDERED: HYDROcodone/APAP 5-325MG 1 EACH TAB PO STA (08:52)
[2020-10-26] MEDS ORDERED: ASPIRIN 81 MG PO SCH (09:00)
--- NOTE | 2020-10-26 09:31 | XR ---
EXAMINATION TYPE: XR ankle limited LT, XR foot complete LT DATE OF EXAM: 10/26/2020 CLINICAL HISTORY: Pop injury yesterday with pain TECHNIQUE: Frontal and lateral images of the left ankle and foot are obtained. Slurred oblique projec tion left foot. COMPARISON: None. FINDINGS: Osseous structures are demineralized. There is no acute fracture/dislocation evident in th e left ankle. The ankle mortise appears within normal limits. The overlying soft tissue appears unr emarkable. There is no acute fracture or dislocation evident in the left foot. High arch is present. Flexion in the toes makes evaluation at this level suboptimal. [id number] narrowing at MTP joints greatest for metatarsal-phalangeal joint. Moderate narrowing at the mid foot level involving Lisfranc joints. Overlying soft tissue is unremarkable. IMPRESSION: There is no acute fracture or dislocation in the left ankle or foot.
--- NOTE | 2020-10-26 10:16 | P.PN ---
Subjective HISTORY OF PRESENTING ILLNESS This is a pleasant 70-year-old female past medical history significant for hypertension and dyslipidemia. She is seen and examined sitting up in bed in no acute distress. She underwent cardiac catheterization via the right femoral artery yesterday revealing no significant obstructive disease with tortuous coronary arteries. Blood pressure 146/77 heart rate 69 afebrile and maintaining oxygen saturation on room air. PHYSICAL EXAMINATION CONSTITUTIONAL: No apparent distress. HEENT: Head is normocephalic. Pupils are equal, round. Sclerae anicteric. Mucous membranes of the mouth are moist. No JVD. No carotid bruit. CHEST EXAMINATION: Lungs are clear to auscultation. No chest wall tenderness is noted on palpation or with deep breathing. HEART EXAMINATION: Regular rate and rhythm. S1, S2 heard. No murmurs, gallops or rub. EXTREMITIES: 2+ peripheral pulses, no lower extremity edema and no calf te nderness. Right femoral access site soft, non-tender with no hematoma, oozing or ecchymosis. ASSESSMENT Chest discomfort Hypertension Daily alcohol intake Dyslipidemia PLAN Stable for discharge from a cardiac perspective. Recommend outpatient blood pressure monitoring given her tortuous arteries seen on catheterization. Follow up with Dr. Bradley in 1 week. Nurse Practitioner note has been reviewed, I agree with a documented findings and plan of care. Patient was seen and examined. Objective - Vital Signs Vital signs: Vital Signs Temp 97.8 F 10/26/20 08:02 Pulse 69 10/26/20 08:02 Resp 16 10/26/20 09:00 BP 146/77 10/26/20 08:02 Pulse Ox 94 L 10/26/20 08:02 Intake & Output 10/25/20 10/26/20 10/26/20 18:59 06:59 18:59 Intake Total 100 960 100 Balance 100 960 100 Intake: IV 100 Oral 960 100 Other: Voiding Method Toilet Toilet Toilet # Voids 1 - Labs CBC & Chem 7: 10/23/20 18:57 10/23/20 18:57
--- NOTE | 2020-10-26 10:43 | P.DS ---
Providers Date of admission: 10/25/20 14:39 Attending physician: Elijah Borges MD Consults: 10/23/20 21:08 Consult Physician Urgent Consulting Provider: Adri Fulton Consult Reason/Comments: cp Do you want consulting provider notified?: Yes Primary care physician: Marco Antonio Madden Hospital Course: Chest pain, resolved. CTA is negative for PE, she underwent cardiac cath with no obstructive lesion. Patient cleared for discharge by [facility] Hypertension sprain of the left foot Possible descending aorta intramural thrombus. On further review it is likely atherosclerotic plaque rather than thrombus History of muscular dystrophy Hospital course: This is a pleasant 70 years old female with past medical history of hypertension. Presents to emergency room because of chest pain. History of muscular dystrophy using leg braces on both sides Patient states she has been having chest pain for the last 4 days, it was on and off for the first 2 days however started getting worse over the last couple days. Now her chest pain resolved. She has negative CTPA of the chest for pulmonary embolism, echocardiogram showed ejection fraction of 55-60%. Ultrasound of the lower extremity is negative for DVT.She underwent cardiac catheterization via the right femoral artery yesterday revealing no significant obstructive disease with tortuous coronary arteries. Patient was cleared for discharge by [facility] and follow-up as an outpatient in [address] Chavarria, patient informed and she agrees Also yesterday while moving from the bed to the stretcher she sprained her left foot, she was not using her brace, on examination there is no swelling or erythema or deformity. X-ray of the ankle and foot show no fracture or dislocation. Patient recommended to take Advil for 2-3 days and follow-up as an outpatient and he was some ice pack with conservative management and she agrees Problems and management plan were discussed with the patient and he verbalized understanding and acceptance Patient was found stable and can be discharged home however he needs follow-up as an outpatient. Patient was instructed to follow up with PCP Dr. Madden within one week and patient agrees. Also patient was instructed to follow up with director recreation [facility] Dr. Bradley in one week and to follow up with her orthopedic doctor in 1 week if her left foot Sprain if it does not resolve and she agrees to call and make appointment , and she confirms for me she has a contact information Gen: patient is a AAOx3, no distress CVS: S1-S2, RRR, no murmur Lungs: B/L CTA, no wheezing Abdomen: soft, no distention, no tenderness, positive bowel sounds Extremity: no leg edema or induration, she has braces for both lower extremity (chronic) mild tenderness of the sole of the left foot, no erythema or swelling or deformity or open wound Time spent more than 35 minutes Plan - Discharge Summary New Discharge Prescriptions: New Atorvastatin [Lipitor] 80 mg PO HS #30 tab Ibuprofen [Advil] 200 mg PO Q8HR PRN 3 Days #10 tab PRN Reason: Pain Continue amLODIPine [Norvasc] 10 mg PO HS Levothyroxine Sodium [Synthroid] 150 mcg PO DAILY FLUoxetine HCL [PROzac] 20 mg PO DAILY Benazepril HCl 40 mg PO HS Omeprazole 20 mg PO DAILY PRN PRN Reason: Gi Upset Discharge Medication List Benazepril HCl 40 mg PO HS 10/23/20 [History] FLUoxetine HCL [PROzac] 20 mg PO DAILY 10/23/20 [History] Levothyroxine Sodium [Synthroid] 150 mcg PO DAILY 10/23/20 [History] Omeprazole 20 mg PO DAILY PRN 10/23/20 [History] amLODIPine [Norvasc] 10 mg PO HS 10/23/20 [History] Atorvastatin [Lipitor] 80 mg PO HS #30 tab 10/26/20 [Rx] Ibuprofen [Advil] 200 mg PO Q8HR PRN 3 Days #10 tab 10/26/20 [Rx] Follow up Appointment(s)/Referral(s): Star Bradley MD [STAFF PHYSICIAN] - 1 Week Marco Antonio Madden MD [Primary Care Provider] - 1-2 days Activity/Diet/Wound Care/Special Instructions: heart healthy diet activity is restricted till you see your doctor use ice pack and hernan bandage for your left foot, if still hurts after 2-3 days then follow up with your primary care doctor and your orthopedic as outpatient, you have contact information as you informed the medical team
[2020-10-26] MEDS ORDERED: ATORVASTATIN 80 MG TAB PO SCH (21:00)
== END 2020-10-26 11:45 | disposition home or self-care (01) | DRG 287 ==
LOC: EC 18:15 → 1SOBS 21:08 → OBSVTOIN 10-25 14:39
PROVIDERS: ADMIT Internal Medicine; ATTEND Internal Medicine
PROC: 4A023N7 Measurement of Cardiac Sampling and Pressure, Left Heart, Percutaneous Approach (ICD-10-PCS; principal; 2020-10-25 09:55)
PROC: B2111ZZ Fluoroscopy of Multiple Coronary Arteries using Low Osmolar Contrast (ICD-10-PCS; principal; 2020-10-25 09:55)
DX: R07.9 Chest pain, unspecified (principal); G71.00 Muscular dystrophy, unspecified; E78.5 Hyperlipidemia, unspecified; I10 Essential (primary) hypertension; I49.3 Ventricular premature depolarization; I70.0 Atherosclerosis of aorta; S93.602A Unspecified sprain of left foot, initial encounter; Z79.890 Hormone replacement therapy; Z79.899 Other long term (current) drug therapy; Z80.0 Family history of malignant neoplasm of digestive organs; Z87.891 Personal history of nicotine dependence; Z88.8 Allergy status to other drugs, medicaments and biological substances
CPT/HCPCS: 36415; 71046; 71275; 80053; 80061; 82550; 83735; 84484; 85025; 85379; 85610; 85730; 93005; 93306; 93458; 93970; 99285

== ENCOUNTER → 2021-09-26 | Outpatient (CLI) | payer MEDICARE ==
--- NOTE | 2021-09-26 20:21 | BD ---
EXAMINATION TYPE: Axial Bone Density DATE OF EXAM: 09/26/2021 COMPARISON: 12.14.2018 CLINICAL HISTORY: 70 YR OLD FEMALE......ICD-10 CODE: Z13.820 OSTEOPOROSIS SCREENING Height: 60.5 Weight: 143 FRAX RISK QUESTIONS: Family History (Parent hip fracture): UNKNOWN FOR SURE History of Fracture in Adulthood: YES 3. Menopause before 45: AT 44 RISK FACTORS HISTORY OF: HX OF LT HIP FX IN HER 40s HX OF RT FOOT AND ANKLE FX AN ADULT Family History of Osteoporosis: UNKNOWN FOR SURE Postmenopausal woman: YES, AT 44 YRS OLD Lost more than 2 inches in height since high school: YES Frequent falls: YES, BRACES ON BOTH FEET AND USING WHEELIE WALKER Hyperparathyroidism: NO Adrenal Insufficiency: NO MEDICATIONS: Thyroid Medications: YES, SYNTHROID.....30+ YRS Additional Medications: PROZAC, REFLUX MEDS, VIT D, CALCIUM, BP MEDS, Additional History: MD, WEARS BRACES ON BOTH FEET, WHEELIE WALKER, REFLUX, ANXIETY EXAM MEASUREMENTS: Bone mineral densitometry was performed using the [employer] System. Bone mineral density as measured about the Lumbar spine is: ----- L1-L4(G/cm2): 0.986 T Score Values are as follows: ----- L1: -1.7 ----- L2: -2.3 ----- L3: -1.4 ----- L4: -1.4 ----- L1-L4: -1.6 Bone mineral density has: Decreased -4.5% since study of: 12.14.2018 Bone mineral density about the R hip (g/cm2): 0.645 T Score values are as follows: -----R Neck: -2.5 -----R Total: -2.9 Bone mineral density has: Decreased -0.6% since study of: 12.14.2018 FRAX%s: THERE IS A 14.2% CHANCE FOR A MAJOR OSTEOPOROTIC FX AND A 3.8% FOR HIP.....PROBABILITY FOR FX IN 10 YRS TIME IMPRESSION: Osteoporosis (T Score less than -2.5). There is increased fracture risk and therapy is usually indicated based on age. Re-Screen 1-2 years. NOTE: T-SCORE=SD OF THE YOUNG ADULT MEAN.
== END | disposition home or self-care (01) ==
LOC: RADBDWWP 12:54
PROVIDERS: ATTEND Internal Medicine
DX: Z13.820 Encounter for screening for osteoporosis (principal); M81.0 Age-related osteoporosis without current pathological fracture
CPT/HCPCS: 77080

== ENCOUNTER → 2021-10-29 | Outpatient (CLI) | payer MEDICARE ==
--- NOTE | 2021-10-30 14:50 | MM ---
Reason for exam: screening (asymptomatic). Last mammogram was performed 1 year and 2 months ago. History: Patient is postmenopausal. Family history of breast cancer in cousin and breast cancer in sister at age 69. Took estrogen for 5 months. Took progesterone for 5 months. Physical Findings: A clinical breast exam by your physician is recommended on an annual basis and results should be correlated with mammographic findings. MG 3D Screening Mammo W/Cad Bilateral CC and MLO view(s) were taken. Prior study comparison: August 22, 2020, bilateral MG 3d screening mammo w/cad. December 14, 2018, bilateral MG 3d screening mammo w/cad. There are scattered fibroglandular densities. No significant changes when compared with prior studies. ASSESSMENT: Benign, BI-RAD 2 RECOMMENDATION: Routine screening mammogram of both breasts in 1 year.
== END ==
LOC: RADMAMWWP 12:59
PROVIDERS: ATTEND Internal Medicine
DX: Z12.31 Encounter for screening mammogram for malignant neoplasm of breast (principal)
CPT/HCPCS: 77063; 77067

== ENCOUNTER → 2022-02-14 | Outpatient (CLI) | payer MEDICARE ==
--- NOTE | 2022-02-14 13:17 | CT ---
EXAMINATION TYPE: CT ankle LT wo con DATE OF EXAM: 02/14/2022 COMPARISON: 10/26/2020 HISTORY: Fx Lt lower Tibia and Fibula CT DLP: 246.2 mGycm Automated exposure control for dose reduction was used. Contrast: None Technique: Axial images 2 mm thick sections. Reconstructed images in the coronal and sagittal plane. 3-D FINDINGS: There appears to be a nondisplaced fracture of the distal fibula nondisplaced medial malleolar fractu res also present. Diffuse soft tissue swelling is present. Structures are osteopenic. IMPRESSION: 1. OBLIQUE FRACTURE DISTAL FIBULA. 2. TRANSVERSE FRACTURE MEDIAL MALLEOLUS.
== END | disposition home or self-care (01) ==
LOC: RADCTMAIN 11:39
PROVIDERS: ATTEND Orthopaedic Surgery
DX: M25.571 Pain in right ankle and joints of right foot (principal); S82.302A Unspecified fracture of lower end of left tibia, initial encounter for closed fracture; S82.62XA Displaced fracture of lateral malleolus of left fibula, initial encounter for closed fracture; X58.XXXA Exposure to other specified factors, initial encounter

== ENCOUNTER → 2022-06-27 | Outpatient (CLI) | payer MEDICARE ==
--- NOTE | 2022-06-27 13:51 | MR ---
EXAMINATION TYPE: MR lumbar spine wo con DATE OF EXAM: 06/27/2022 COMPARISON: None HISTORY: LBP, into right buttock, fall in February. Parapalegic. CONTRAST: 0 mL intravenous Gadavist. TECHNIQUE: Multiplanar, multisequence images of the lumbar spine were acquired. FINDINGS: Cord terminates at the T12-L1 level. 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 No spinal canal stenosis. No foraminal stenosi s. Mild facet hypertrophy is present. L4-L5: No significant disc bulge or disc herniation. No spinal canal stenosis. No foraminal stenosi s. Facet hypertrophy has mild foraminal narrowing. No spinal canal stenosis is present. Ligamentum f lavum laxity is noted. L3-L4: No significant disc bulge or disc herniation. No spinal canal stenosis. No foraminal stenosi s. Ligamentum flavum laxity has posterior lateral thecal sac contact.. L2-L3: No significant disc bulge or disc herniation. No spinal canal stenosis. No foraminal stenosi s. Neural foramen are patent.. L1-L2: No significant disc bulge or disc herniation. No spinal canal stenosis. No foraminal stenosi s. Neural foramen are patent.. T12-L1: No significant disc bulge or disc herniation. No spinal canal stenosis. No foraminal stenos is. Neural foramen are patent.. IMPRESSION: 1. Mild facet hypertrophy and ligamentum flavum laxity discussed above. No spinal canal stenosis pres ent. 2. Mild foraminal narrowing due to facet hypertrophy L4-5
== END | disposition home or self-care (01) ==
LOC: RADMRIMAIN 11:38
PROVIDERS: ATTEND Internal Medicine
DX: G82.20 Paraplegia, unspecified (principal)
CPT/HCPCS: 72148